=== PATIENT | female | born 1975 | race Caucasian/White ===

== ENCOUNTER 2017-10-16 06:04 | Day surgery (SDC) | payer OTHER ==
[~2017-10-16] VITALS: Ht 167.6 cm; Wt 63.2 kg
[~2017-10-16 06:04] MED LIST: ACIDOPHIL; ALBU90I INH; ALBU90OI INH; ALBU90OI6 INH; ALBU90OI61 INH; ALPR.5 PO; AMOCLA875 PO; AMOX875 PO; ASCO1ER; Augmentin 875-1 EACH PO; BISA5EC PO; BORIC ACID; Bactrim Ds Tab1 EACH PO; CEPH250A PO; CITA20 PO; CLON.5; CYCL10; CYCL10 PO; Cipro250 MG PO; Cleocin HCl150 MG PO; Cyclobenzaprine5 MG PO; DOXY100 PO; FISH1000 PO; FLUT.05NI; HYDACE10B PO; HYDACE5 PO; HYDCOR2.5C PR; HYDMOR2 PO; IBUP600 PO; IBUP800 PO; MELO7.5 PO; META800 PO; METO10 PO; MULVITA; MULVITMINE; NAPR550 PO; Naprosyn500 MG PO; OXYACE5T PO; OXYACE7.5T PO; OXYC15ER MT; OXYC15ER PO; OXYC5 PO; PHENA200 PO; POLY17UD PO; PROCODE120 PO; PROM25 PO; Pyridium200 MG PO; RXCYCL10 PO; RXHYDMOR2 PO; RXPHEN200 PO; RXTRAM50 PO; SPACE CHAMBER1 EACH MC; SULTRIDS PO; SUMA25 PO; TRAM50 PO; Ultram50 MG PO; ZINC15 PO; [UNRECOGNIZED DRUG - OTHER]
--- NOTE | 2017-10-16 07:41 | NUR ---
10/16/17 0741 Andreea Busch ASSISTED WITH INTERSCALINE NERVE BLOCK WITH NURSE [place]. START TIME 0721, AND ENDED AT 0735. PT WAS WEARING 2 L OF 02 VIA NS. PT DID NOT HAVE SEDATING MEDICATION FOR THE PROCEDURE, AND TOLERATED IT WELL. VITAL SIGNS IN PROCEDURE WERE: 113/78, HR 61, OXYGEN 100% 111/76, HR 60 OXYGEN 100%. NO FURTHER CONCERN WITH PT OR PROCEDURE AT THIS TIME.
--- NOTE | 2017-10-16 10:00 | NUR ---
10/16/17 Naty Hernandez LATE ENTRY: PT WAS VERY DISORIENTED TO PLACE AND EVENT. VERY RESTLESS IN BED TRYING TO REMOVE SLING, COMBATIVE W/CARE AND WOULD NOT FOLLOW COMMANDS. TRIED TO REASSURE PT. CALMED DOWN AFTER SEVERAL MINUTES AFTER BEING REDIRECTED MULTIPLE TIMES AND MADE AWARE OF EVENT AND PLACE. TRANSFERRED IN STABLE CONDITION TO SDU, PT WAS TEARY AND ASKING FOR HER MOM
--- NOTE | 2017-10-16 10:03 | NUR ---
10/16/17 Nahomy Ernst PT IS IN THE RECLINER AT THIS TIME ACCOMPANIED BY HER MOM. PRASHANTKris WALDRON IS HOOKED UP AND RUNNING WARM FOR COMFORT. VSS. POLAR PACK IS RUNNING ON THE OP SITE. PT DOES NOT COMPLAIN OF PAIN AT THE OP SITE HOWEVER DOES STATE THAT SHE HAS "A HEADACHE 7/10 PAIN." 2 TABLETS OF NORCO WERE GIVEN AT [address] ORDERS. PT CURRENTLY DENIES NAUSEA AND HAS TOLERATED PO FLUIDS AND CRACKERS WELL. CALL LIGHT IS IN REACH. RN WILL CONTINUE TO MONITOR PAIN/NAUSEA/VITAL SIGNS.
== END 2017-10-16 10:54 | disposition home or self-care (01) ==
LOC: ORSCSDS 06:04
PROVIDERS: Orthopaedic Surgery
PROC: 0LQ14ZZ Repair Right Shoulder Tendon, Percutaneous Endoscopic Approach (ICD-10-PCS; principal; 2017-10-16 07:30)
PROC: 0RNJ4ZZ Release Right Shoulder Joint, Percutaneous Endoscopic Approach (ICD-10-PCS; principal; 2017-10-16 07:30)
DX: M75.111 Incomplete rotator cuff tear or rupture of right shoulder, not specified as traumatic (principal); M75.21 Bicipital tendinitis, right shoulder; M75.51 Bursitis of right shoulder; M75.41 Impingement syndrome of right shoulder; F17.210 Nicotine dependence, cigarettes, uncomplicated
CPT/HCPCS: C1713; J0171; J0690; J2250; J2405; J3010; J7120

== ENCOUNTER 2019-02-20 17:47 | Emergency (ER) | payer OTHER ==
[~2019-02-20] VITALS: Ht 167.6 cm; Wt 64.9 kg
[2019-02-20] MEDS ORDERED: PSEU120ER PO (18:19)
== END 2019-02-20 18:24 | disposition home or self-care (01) ==
LOC: ER 17:47
DX: H69.91 Unspecified Eustachian tube disorder, right ear (principal); G43.909 Migraine, unspecified, not intractable, without status migrainosus; Z87.891 Personal history of nicotine dependence
CPT/HCPCS: 99283

== ENCOUNTER 2021-06-18 10:49 | Emergency (ER) | payer OTHER ==
[~2021-06-18] VITALS: Ht 167.6 cm; Wt 61.7 kg
[~2021-06-18 10:49] MED LIST changes: +PSEU120ER PO
== END 2021-06-18 11:27 | disposition home or self-care (01) ==
LOC: ER 10:49
DX: U07.1 COVID-19 (principal); Z87.891 Personal history of nicotine dependence
CPT/HCPCS: 99282

== ENCOUNTER 2022-04-08 17:19 | Emergency (ER) | payer OTHER | END 2022-04-08 19:08 | disposition left against medical advice (07) | LOC: ER 17:19 | DX: S69.91XA Unspecified injury of right wrist, hand and finger(s), initial encounter (principal); X58.XXXA Exposure to other specified factors, initial encounter; Z53.21 Procedure and treatment not carried out due to patient leaving prior to being seen by health care provider ==

== ENCOUNTER → 2023-09-27 | Outpatient (CLI) | payer OTHER ==
[2023-09-28 11:40] LABS: Candida species (DNA Probe) Negative (NEGATIVE); G. vaginalis (DNA Probe) Positive (NEGATIVE); T. vaginalis (DNA Probe) Negative (NEGATIVE)
== END ==
LOC: LAB 17:12 → LAB SHORT 17:12
PROVIDERS: Chiropractor
DX: N89.8 Other specified noninflammatory disorders of vagina (principal); R82.79 Other abnormal findings on microbiological examination of urine
CPT/HCPCS: 87086; 87480; 87510; 87660